=== PATIENT | female | born 1980 | race Two or more races ===

== ENCOUNTER → 2024-05-02 | Outpatient (CLI) | payer BC, MEDICAID, SELFPAY ==
--- NOTE | 2024-05-02 10:00 | XR_ITS ---
Examination: CT abdomen with intravenous contrast CT pelvis with intravenous contrast 2-D coronal reconstructions 2-D sagittal reconstructions Date and time of exam:May 02, 2024 1050 hours INDICATIONS: Episodes of hematuria and recurrent urinary tract infections beginning August 2023. CTDI: vol (mGy) 5.44 DLP: (mGycm) 244 Technique: Multiple axial sections of the abdomen and pelvis have been obtained. 64 slice high-resolution scanner used. 3 mm axial sections have been obtained, post intravenous injection 60 cc [id number] 2-D sagittal, coronal reconstructions obtained. Low dose protocols were performed. One or more of the following dose reduction techniques were used; automated exposure control, adjustment of the mA and/or KV according to patient size, use of iterative reconstruction technique. Findings: No focal liver or splenic lesion No gallstones No pancreatic or adrenal mass No renal or ureteral calculi, no hydronephrosis Probable benign lobulation in the right kidney, coronal image 68, recommend renal sonography follow-up Aorta normal size Normal appendix No bowel obstruction No diverticulitis Partially retroverted uterus No bladder mass or bladder calculi Mild disc narrowing L5-S1 IMPRESSION: No renal or ureteral calculi, no hydronephrosis Probable lobulation in the midportion right kidney, recommend renal sonography follow-up Normal appendix No bladder mass or bladder calculi
== END | disposition home or self-care (01) ==
LOC: CCTX 09:42
PROVIDERS: Referring Provider Internal Medicine Nephrology; Visit Provider Internal Medicine Nephrology
DX: N39.0 Urinary tract infection, site not specified (principal); N13.732 Vesicoureteral-reflux with reflux nephropathy with hydroureter, bilateral
CPT/HCPCS: 74177; A4649; Q9967

== ENCOUNTER → 2024-09-11 | Outpatient (CLI) | payer OTHER, MEDICAID, SELFPAY ==
--- NOTE | 2024-09-11 | XR_ITS ---
Examination: Screening digital mammography, bilateral Computer aided detection 3-D breast Tomosynthesis, bilateral Date and time of exam: September 11, 2024 1028 hours Comparison August 30, 2023 Indication: Screening, bilateral breast discomfort one year Technique: Nonmagnified MLO, CC views of the breasts to been obtained, reconstructed from 3-D Tomosynthesis images. R2 computer aided detection program utilized for evaluation of suspicious masses and/or abnormal calcifications. 3-D Tomosynthesis images obtained. Findings: The breasts are heterogeneously dense, which may obscure small masses Benign calcifications. No interval suspicious masses Impression: BI-RADS category II: Benign Findings. Recommend 1 year follow-up mammogram. Given the patient's presentation, consider bilateral breast sonography follow-up
== END | disposition home or self-care (01) ==
PROVIDERS: Referring Provider Family Medicine; Visit Provider Family Medicine
DX: Z12.31 Encounter for screening mammogram for malignant neoplasm of breast (principal)
CPT/HCPCS: 77063; 77067

== ENCOUNTER → 2024-10-06 | Outpatient (CLI) | payer OTHER, MEDICAID, SELFPAY ==
[2024-10-06 14:45] LABS: Collection Type, Urine Clean Catch
[2024-10-06 16:36] LABS: Bilirubin,Urine Negative (Negative); Blood,Urine Trace (Negative); Clarity,Urine Clear (Clear/Hazy); Color,Urine Lt-Yellow (Lt Yel-Yel); Glucose, Urine Negative (Negative); Ketones,Urine Negative (Negative); Leukocyte Esterase,Urine Negative (Negative); Nitrite,Urine Negative (Negative); PH,Urine 5.5 (5.0-7.0); Protein,Urine Negative (Neg - Trace); RBC,Urine 2 /hpf (0-3); Specific Gravity,Urine 1.020 (1.001-1.035); Squamous Epithelial Cell,Urine 6 /hpf (0-5); Urobilinogen,Urine Negative mg/dL (0.0-1.0); WBC,Urine 1 /hpf (0-5)
== END | disposition home or self-care (01) ==
LOC: SLDO 14:40
PROVIDERS: PCP Family Medicine; Referring Provider Family Medicine; Visit Provider Family Medicine
DX: N30.00 Acute cystitis without hematuria (principal)
CPT/HCPCS: 81001; 87086

== ENCOUNTER → 2024-12-11 | Outpatient (CLI) | payer OTHER, MEDICAID, SELFPAY ==
--- NOTE | 2024-12-11 09:05 | XR_ITS ---
Examination: Lumbar spine 3 views Technique one AP lateral coned lateral lower lumbar spine 3 views Date and time: November, 0921 hours INDICATIONS: Lower back pain after injury one year ago. FINDINGS: Adequate alignment lumbar vertebral bodies No lumbar fracture. Diffuse [id number]-rp-qzmenyal lumbar disc narrowing most prominent at L5-S1 IMPRESSION: Diffuse [id number] lumbar disc narrowing, most prominent at L5-S1 No lumbar fracture Mild lumbar spondylosis
== END | disposition home or self-care (01) ==
LOC: CDIM 08:49
PROVIDERS: PCP Family Medicine; Referring Provider Family Medicine; Visit Provider Family Medicine
DX: M48.07 Spinal stenosis, lumbosacral region (principal); M47.816 Spondylosis without myelopathy or radiculopathy, lumbar region
CPT/HCPCS: 72100